=== PATIENT | female | born 1965 | race Caucasian/White ===

== ENCOUNTER 2020-09-11 06:24 | Day surgery (SDC) | payer BC ==
[2020-09-07 13:58] LABS: BASOPHILS % (AUTO) 0.9 % (0.0-5.0); HEMATOCRIT 45.5 % (36-48); LYMPHOCYTES % (AUTO) 21.1 % (21.0-51.0); MEAN CORPUSCULAR HGB CONC 34.3 g/dL (32.0-36.0); MEAN CORPUSCULAR VOLUME 87.5 fL (79-99); NEUTROPHILS % (AUTO) 70.2 % (40.0-77.0); PLATELET COUNT (AUTO) 324 K/uL (130-400); RED CELL DISTRIBUTION WIDTH 12.3 % (11.0-15.5); WHITE BLOOD COUNT (AUTO) 11.4 K/uL (4.8-10.8)
[2020-09-07 14:07] LABS: CREATININE 0.6 mg/dL (0.5-1.5); POTASSIUM 3.8 mmol/L (3.5-5.1)
[2020-09-10 13:01] VITALS: BP 139/73
[2020-09-11] VITALS (18 sets, daily range): BP systolic 75–132; BP diastolic 44–74
[~2020-09-11] VITALS: Ht 157.5 cm; Wt 89.7 kg
[~2020-09-11 06:24] MED LIST: CELE-84 PO; DULO30CA52 PO; ESTR0.452 PO; FAMO20TA8 PO; GABA300C PO; LISI40TA9 PO; LORA10TA7 PO; MELA10TA PO; MONT10TA32 PO; NIFE-40 PO; ROPI1TAB13 PO; ZOLP10TA2 PO
[2020-09-11] MEDS ORDERED: LACTATED RINGERS 1000ML 1,000 ML IV ONE (07:14)
[2020-09-11] MEDS ORDERED: CLINDAMYCIN 600 MG/D5% WATER 50 ML IV ONE (07:14)
[2020-09-11] MEDS ORDERED: LIDOCAINE PF 100MG/5ML (2%) SYRINGE 5ML ONE (07:27)
[2020-09-11] MEDS ORDERED: DEXAMETHASONE SOD PHOSPHATE 10MG/ML 1ML VIAL ONE (07:27)
[2020-09-11] MEDS ORDERED: PROPOFOL 10 MG/ML 20ML VIAL IV ONE (07:27)
[2020-09-11] MEDS ORDERED: ONDANSETRON HCL 4 MG/2 ML VIAL ONE (07:27)
[2020-09-11] MEDS ORDERED: FENTANYL CITRATE PF 50 MCG/1 ML 2ML VIAL ONE ×2 (07:27→09:15)
[2020-09-11] MEDS ORDERED: MIDAZOLAM HCL 1 MG/ML 2ML VIAL ONE ×2 (07:28→08:43)
[2020-09-11] MEDS ORDERED: MEPERIDINE-PF 25 MG/ML SYG ONE (07:28)
[2020-09-11] MEDS ORDERED: ROCURONIUM 10MG/1ML SYR 10 MG/ML ML ONE (07:38)
[2020-09-11] MEDS ORDERED: ROPIVACAINE 0.5% 5MG/ML 30ML IJ ONE (07:40)
[2020-09-11] MEDS ORDERED: EPHEDRINE SULFATE 50 MG/ML AMPULE ONE (08:59)
[2020-09-11] MEDS ORDERED: KETOROLAC 30MG VIAL (30MG/ML) ONE (09:41)
== END 2020-09-11 11:50 | disposition home or self-care (01) ==
LOC: DAH 06:24
PROVIDERS: ATTEND Orthopaedic Surgery
DX: M23.331 Other meniscus derangements, other medial meniscus, right knee (principal); M25.761 Osteophyte, right knee; Z20.822 Contact with and (suspected) exposure to COVID-19; M94.261 Chondromalacia, right knee; J45.909 Unspecified asthma, uncomplicated; I10 Essential (primary) hypertension; K21.9 Gastro-esophageal reflux disease without esophagitis; M19.90 Unspecified osteoarthritis, unspecified site; E66.9 Obesity, unspecified; F41.8 Other specified anxiety disorders; Z88.0 Allergy status to penicillin; Z88.8 Allergy status to other drugs, medicaments and biological substances; Z90.49 Acquired absence of other specified parts of digestive tract; Z98.890 Other specified postprocedural states; Z90.722 Acquired absence of ovaries, bilateral; Z79.899 Other long term (current) drug therapy; Z83.3 Family history of diabetes mellitus; Z82.49 Family history of ischemic heart disease and other diseases of the circulatory system; Z80.0 Family history of malignant neoplasm of digestive organs; Z68.35 Body mass index [BMI] 35.0-35.9, adult
CPT/HCPCS: 29881; 36415; 64415; 76942; 80048; 85025; 87635; 93005; A4215; A4216; A4221; A4222; A4223 ×3; A4606 ×2; A4649 ×3; A4663; A4930 ×2; A6223; A6260; C9803; J1100; J1885; J2001; J2175; J2250 ×2; J2405; J2704; J2795; J3010 ×2; J3490 ×2; J7120 ×2

== ENCOUNTER 2021-09-10 08:54 | Observation (INO) | payer BC ==
[2021-09-06 12:18] LABS: EOSINOPHILS % (AUTO) 1.9 % (0.0-8.0); HEMATOCRIT 47.4 % (36-48); LYMPHOCYTES % (AUTO) 29.9 % (21.0-51.0); MEAN CORPUSCULAR HEMOGLOBIN 29.6 pg (27.0-33.0); MEAN CORPUSCULAR HGB CONC 33.5 g/dL (32.0-36.0); MEAN CORPUSCULAR VOLUME 88.3 fL (79-99); MONOCYTES % (AUTO) 7.4 % (3.0-13.0); NEUTROPHILS % (AUTO) 58.8 % (40.0-77.0); PLATELET COUNT (AUTO) 332 K/uL (130-400); RED BLOOD CELL COUNT(AUTO) 5.37 MIL/uL (4.00-5.50); RED CELL DISTRIBUTION WIDTH 11.9 % (11.0-15.5); WHITE BLOOD COUNT (AUTO) 10.8 K/uL (4.8-10.8)
[2021-09-06 12:24] LABS: CREATININE 0.6 mg/dL (0.5-1.5); POTASSIUM 4.5 mmol/L (3.5-5.1)
[2021-09-09 11:32] VITALS: BP 141/70
[~2021-09-10] VITALS: Ht 157.5 cm; Wt 89.4 kg
[2021-09-10] VITALS (24 sets, daily range): BP systolic 129–194; BP diastolic 68–98
[2021-09-10] MEDS: CLINDAMYCIN IVPB 600MG/50ML 50 ML IV SCH ×2 (08:00→13:39)
[~2021-09-10 08:54] MED LIST changes: +LACTATED RINGERS 1000ML 1,000 ML IV SCH; +MONT-39 PO; -MONT10TA32 PO
[2021-09-10] MEDS ORDERED: CEFAZOLIN SODIUM 1 GM VIAL ONE (09:44)
[2021-09-10] MEDS ORDERED: 0.9%NACL 1000ML 1,000 ML IV ONE (09:44)
[2021-09-10] MEDS ORDERED: CLINDAMYCIN IVPB 600MG/50ML 50 ML IV ONE (09:51)
[2021-09-10] MEDS ORDERED: NABU-143 PO (11:45)
[2021-09-10] MEDS ORDERED: CORTSOL OT (11:45)
[2021-09-10] MEDS ORDERED: MV-M1TAB20 PO (11:45)
[2021-09-10] MEDS ORDERED: ATOR20TA65 PO (11:45)
[2021-09-10] MEDS ORDERED: VITA1TAB22 PO (11:45)
[2021-09-10] MEDS ORDERED: ALBU0.63 IH (11:45)
[2021-09-10] MEDS ORDERED: MELA10TA2 PO (11:45)
[2021-09-10] MEDS ORDERED: FEXO-263 PO (11:45)
[2021-09-10] MEDS ORDERED: DULO60CA64 PO (11:45)
[2021-09-10] MEDS ORDERED: ACET-2079 PO (11:45)
[2021-09-10] MEDS ORDERED: OMEP20TA20 PO (11:45)
[2021-09-10] MEDS ORDERED: KETOROLAC 15MG/ML VIAL (15MG/ML) IV PRN (12:00)
[2021-09-10] MEDS ORDERED: FERROUS FUMARATE 324 MG TABLET PO PRN (12:00)
[2021-09-10] MEDS: TRAMADOL HCL 50 MG TABLET PO SCH ×2 (12:00→18:27)
[2021-09-10] MEDS ORDERED: POTASSIUM CHLORIDE 10% ELIXIR 20 MEQ/15 ML UDCUP PO PRN (12:00)
[2021-09-10] MEDS ORDERED: HYDROCODONE/ACETAMINOPHEN 5/325 MG TAB PO PRN (12:00)
[2021-09-10] MEDS ORDERED: [UNRECOGNIZED DRUG - OTHER] OTIC SCH (12:00)
[2021-09-10] MEDS ORDERED: ONDANSETRON 4MG INJ IVP PRN (12:00)
[2021-09-10] MEDS: ACETAMINOPHEN 500 MG TABLET PO SCH ×2 (12:00→21:42)
[2021-09-10] MEDS ORDERED: NON-FORMULARY MEDICATION 1 EACH (Albuterol Sulfate 0.63 MG) IH SCH (12:00)
[2021-09-10] MEDS ORDERED: TEMAZEPAM 15 MG CAPSULE PO PRN (12:00)
[2021-09-10] MEDS ORDERED: LIDOCAINE HCL-MPF 1% 2ML VIAL IV PRN (12:00)
[2021-09-10] MEDS: 0.9%NACL 1000ML 1,000 ML IV SCH (12:00)
[2021-09-10] MEDS ORDERED: POTASSIUM CHLORIDE 20MEQ/100ML 100 ML IV PRN (12:00)
[2021-09-10] MEDS ORDERED: NEOMYCIN OTIC SCH (12:00)
[2021-09-10] MEDS ORDERED: POLYMYXIN B SULF OTIC SCH (12:00)
[2021-09-10] MEDS ORDERED: HYDROCODONE/ACETAMINOPHEN 10/325 MG TAB PO PRN (12:00)
[2021-09-10] MEDS ORDERED: KCL 20 MEQ ERTAB PO PRN (12:00)
[2021-09-10] MEDS ORDERED: PHARMACY COMMUNICATION MISC SCH (12:30)
[2021-09-10] MEDS ORDERED: ROPIVACAINE 0.5% 5MG/ML 30ML IJ ONE (12:56)
[2021-09-10] MEDS: GABAPENTIN 300 MG CAPSULE PO SCH ×2 (13:00→18:28)
[2021-09-10] MEDS ORDERED: TRANEXAMIC ACID 1000MG/10ML ONE (13:03)
[2021-09-10] MEDS ORDERED: LIDOCAINE PF 100MG/5ML (2%) SYRINGE 5ML ONE (13:16)
[2021-09-10] MEDS ORDERED: SUCCINYLCHOLINE CHLORIDE 20 MG/ML 10 ML VIAL ONE (13:16)
[2021-09-10] MEDS ORDERED: FENTANYL CITRATE PF 50 MCG/1 ML 2ML VIAL ONE ×2 (13:17→14:34)
[2021-09-10] MEDS ORDERED: ROCURONIUM 10MG/1ML SYR 10 MG/ML ML ONE (13:17)
[2021-09-10] MEDS ORDERED: MIDAZOLAM HCL 1 MG/ML 2ML VIAL ONE (13:17)
[2021-09-10] MEDS ORDERED: PROPOFOL 10 MG/ML 20ML VIAL IV ONE (13:17)
[2021-09-10] MEDS ORDERED: [UNRECOGNIZED DRUG - OTHER] IV PRN ×5 (13:30)
[2021-09-10] MEDS ORDERED: ROPIVACAINE IV PRN ×5 (13:30)
[2021-09-10] MEDS ORDERED: NS IV PRN ×5 (13:30)
[2021-09-10] MEDS ORDERED: EPINEPHRINE IV PRN ×5 (13:30)
[2021-09-10] MEDS ORDERED: PHENYLEPHRINE HCL 10 MG/ML 1ML VIAL IV ONE (13:48)
[2021-09-10] MEDS: ROPINIROLE HCL 1 MG TABLET PO SCH ×2 (14:00→21:41)
[2021-09-10] MEDS ORDERED: DiphenhydrAMINE HCL 50 MG/ML VIAL ONE ×2 (14:02→14:03)
[2021-09-10] MEDS ORDERED: DEXAMETHASONE SOD PHOSPHATE 10MG/ML 1ML VIAL ONE ×2 (14:02→14:03)
[2021-09-10] MEDS ORDERED: GLYCOPYRROLATE 1 MG/5 ML SYRINGE ONE (15:14)
[2021-09-10] MEDS ORDERED: NEOSTIGMINE 5MG/5ML SYR IV ONE (15:14)
[2021-09-10] MEDS ORDERED: ONDANSETRON 4MG INJ ONE (15:14)
[2021-09-10] MEDS ORDERED: KETOROLAC 30MG VIAL (30MG/ML) ONE (16:01)
[2021-09-10] MEDS ORDERED: MEPERIDINE-PF 25 MG/ML SYG ONE ×2 (16:01→16:24)
[2021-09-10] MEDS: CLINDAMYCIN IVPB 900MG/50ML 50 ML IV SCH (18:28)
[2021-09-10] MEDS: MORPHINE 4 MG SYG IVP PRN (18:58)
[2021-09-10] MEDS ORDERED: MELATONIN 30 MG PO SCH (21:00)
[2021-09-10] MEDS ORDERED: FAMOTIDINE 20MG TAB PO SCH (21:00)
[2021-09-10] MEDS ORDERED: MONTELUKAST SODIUM 10 MG TAB PO SCH (21:00)
[2021-09-10] MEDS: ASPIRIN 81 MG EC TAB PO SCH (21:41)
[2021-09-11] MEDS: GABAPENTIN 300 MG CAPSULE PO SCH ×3 (00:42→11:24)
[2021-09-11] MEDS: CLINDAMYCIN IVPB 900MG/50ML 50 ML IV SCH (00:43)
[2021-09-11] MEDS: TRAMADOL HCL 50 MG TABLET PO SCH ×3 (00:43→11:25)
[2021-09-11] MEDS: 0.9%NACL 1000ML 1,000 ML IV SCH ×2 (00:44→08:00)
[2021-09-11 04:01] VITALS: BP 142/64
[2021-09-11 04:14] LABS: HEMATOCRIT 36.5 % (36-48); MEAN CORPUSCULAR HEMOGLOBIN 30.6 pg (27.0-33.0); MEAN CORPUSCULAR HGB CONC 35.1 g/dL (32.0-36.0); MEAN CORPUSCULAR VOLUME 87.3 fL (79-99); RED BLOOD CELL COUNT(AUTO) 4.18 MIL/uL (4.00-5.50); RED CELL DISTRIBUTION WIDTH 11.7 % (11.0-15.5)
[2021-09-11 04:27] LABS: CREATININE 0.8 mg/dL (0.5-1.5); POTASSIUM 4.2 mmol/L (3.5-5.1)
[2021-09-11] MEDS: ACETAMINOPHEN 500 MG TABLET PO SCH ×2 (05:22→11:25)
[2021-09-11] MEDS: ROPINIROLE HCL 1 MG TABLET PO SCH ×2 (06:52→13:49)
[2021-09-11 07:30] VITALS: BP 177/75
[2021-09-11] MEDS ORDERED: Vitamin D3 Complete Cap PO SCH (09:00)
[2021-09-11] MEDS ORDERED: NIFEDIPINE ER 30 MG TAB PO SCH (09:00)
[2021-09-11] MEDS ORDERED: DULOXETINE HCL 30 MG CAP PO SCH (09:00)
[2021-09-11] MEDS ORDERED: LISINOPRIL 40 MG TABLET PO SCH (09:00)
[2021-09-11] MEDS ORDERED: PANTOPRAZOLE 40 MG TAB DR PO SCH (09:00)
[2021-09-11] MEDS ORDERED: Fexofenadine HCl 180 MG PO SCH (09:00)
[2021-09-11] MEDS ORDERED: POLYETHYLENE GLYCOL 3350 17 GM POWD.PACK PO SCH (09:00)
[2021-09-11] MEDS: ASPIRIN 81 MG EC TAB PO SCH (09:35)
[2021-09-11] MEDS: MORPHINE 4 MG SYG IVP PRN (09:36)
[2021-09-11 11:00] VITALS: BP 154/66
[2021-09-13] MEDS ORDERED: BISACODYL 10 MG SUPP.RECT RC PRN (12:00)
== END 2021-09-11 15:30 | disposition home or self-care (01) ==
LOC: DAH 08:54 → DAHIP 08:55 → DAH 08:55 → 4BH 16:51
PROVIDERS: ADMIT Orthopaedic Surgery; ATTEND Orthopaedic Surgery
DX: M17.11 Unilateral primary osteoarthritis, right knee (principal); Z20.822 Contact with and (suspected) exposure to COVID-19; I10 Essential (primary) hypertension; F41.9 Anxiety disorder, unspecified; F32.9 Major depressive disorder, single episode, unspecified; Z79.82 Long term (current) use of aspirin; Z79.899 Other long term (current) drug therapy; Z98.890 Other specified postprocedural states
CPT/HCPCS: 27447; S2900; 36415; 80048; 85025; 85027; 87635; 87641; 96365; 96366; 96375; 96376; 97039; C9803; G0378; J0330; J0690; J1100; J1200; J1885; J2001; J2175; J2250; J2270; J2370; J2405; J2704; J2710; J2795; J3010; J3490; J7030